=== PATIENT | male | born 1995 | race African-American/Black ===

== ENCOUNTER 2020-09-25 21:23 | Emergency (ER) | payer OTHER ==
[~2020-09-25] VITALS: Ht 162.6 cm; Wt 93.0 kg
[2020-09-25 21:23] VITALS: TEMP 98.3
[2020-09-25 22:34] LABS: PLATELET COUNT 234 K/uL (142-355)
[2020-09-25 22:40] LABS: POTASSIUM 3.5 mmol/L (3.6-5.2)
[2020-09-25 23:58] VITALS: BP 141/84
== END 2020-09-26 | disposition home or self-care (01) ==
LOC: ED 21:23
PROVIDERS: Family Medicine
DX: R42 Dizziness and giddiness (principal); T50.B95A Adverse effect of other viral vaccines, initial encounter; Y92.89 Other specified places as the place of occurrence of the external cause
CPT/HCPCS: 36415; 80053; 85027; 85379; 85610; 85730; 87635; 99283; U0003